=== PATIENT | male | born 1945 | race Caucasian/White ===

== ENCOUNTER 2019-07-06 15:01 | Emergency (ER) | payer OTHER, MEDICARE | END 2019-07-06 16:07 | disposition home or self-care (01) | LOC: EDH 15:01 | DX: S93.492A Sprain of other ligament of left ankle, initial encounter (principal); E11.9 Type 2 diabetes mellitus without complications; I10 Essential (primary) hypertension; Z91.040 Latex allergy status; X58.XXXA Exposure to other specified factors, initial encounter; Y93.89 Activity, other specified; Y92.213 High school as the place of occurrence of the external cause; Y99.8 Other external cause status | CPT/HCPCS: 73610 ==

== ENCOUNTER 2024-04-30 11:54 | Emergency (ER) | payer MEDICARE ==
[~2024-04-30] VITALS: Ht 170.2 cm; Wt 77.1 kg
--- NOTE | 2024-04-30 12:03 | ERN ---
ED Note History of Present Illness Stated Complaint: RIGHT TESTICULAR PAIN Chief Complaint: Testicular Injury/Pain Time Seen by MD: 11:56 Dictation: PATIENT IS AN 79-YEAR-OLD MALE HERE WITH COMPLAINTS OF RIGHT TESTICULAR PAIN WITHOUT FEVER CHILLS NAUSEA VOMITING FOR TWO DAYS. HE DENIES ANY FLANK PAIN NO CHANGE IN URINATION. DENIES ANY HISTORY OF CA. DOES NOT HAVE A PRIMARY CARE DOCTOR SAYS HE HAS BEEN SCOPE AND IT OUT ON GOOGLE AND THEN DECIDED TO COME TO THE EMERGENCY ROOM TO HAVE IT EVALUATED. Allergies: Coded Allergies: No Known Drug Allergies (Unverified Allergy, Unknown, 04/30/24) Past Medical History Past Medical History: High Cholesterol, Hypertension Surgical History: Other Surgical History Other: SHOULDER SX, LIPOMAS RN Note Reviewed/Agreed w/PFSH: Yes Review of System Dictation CONSTITUTIONAL: NEGATIVE EXCEPT FOR HPI HEAD/FACE: NEGATIVE EXCEPT FOR HPI EENT: NEGATIVE EXCEPT FOR HPI RESPIRATORY: NEGATIVE EXCEPT FOR HPI GASTROINTESTINAL/ABDOMINAL: NEGATIVE EXCEPT FOR HPI GENITOURINARY: NEGATIVE EXCEPT FOR HPI RIGHT TESTICULAR PAIN TWO DAYS MUSCULOSKELETAL: NEGATIVE EXCEPT FOR HPI INTEGUMENTARY: NEGATIVE EXCEPT FOR HPI NEUROLOGICAL/PSYCH: NEGATIVE EXCEPT FOR HPI HEMATOLOGIC/LYMPHATIC: NEGATIVE EXCEPT FOR HPI ALL SYSTEMS NEGATIVE, EXCEPT NOTED ABOVE. 13 POINT REVIEW OF SYSTEMS ASSESSED AND ALL NEGATIVE EXCEPT FOR ABOVE. Initial Vital Sign VS Vital Signs Date Time Temp Pulse Resp B/P (MAP) Pulse Ox O2 Delivery O2 Flow Rate FiO2 04/30/24 11:55 97.5 56 16 158/71 100 Room Air* 0 21 Physical Exam Dictation VITAL SIGNS REVIEWED IN ROOM WITH THE EXAM GENERAL APPEARANCE: ALERT, ORIENTED X 3, MILD ACUTE DISTRESS, WELL DEVELOPED, NOURISHED. HEAD AND FACE: NON-TRAUMATIC. EYES: PERRL, PINK CONJUNCTIVAS, EYELID NO TRAUMA, ANTERIOR CHAMBER WITH ARCUS SENILIS. EARS: PINNAS INTACT AND NO SIGNS OF TRAUMA OR ERYTHEMA EAR CANALS CLEAR AND NO DISCHARGE TM NO ERYTHEMA NOSE: NO DISCHARGE, NO BLEEDING. OROPHARYNX: MOUTH NORMAL, TONGUE PINK, PHARYNX CLEAR,NO ERYTHEMA, TONSILS NO EXUDATES, NO ABSCESSES NOTED, MUCOUS MEMBRANE MOIST NECK: SUPPLE, NON-TENDER, NO THYROMEGALY, NO MASSES, NO JVD, NO BRUITS BREAST:DEFERRED CHEST:NO TENDERNESS, NO CREPITUS, NO PARADOXICAL MOVEMENT, NO RETRACTIONS LUNGS:CLEAR, WELL-VENTILATED, SYMMETRIC, NO RALES, NO WHEEZING, NO RHONCHI, NO STRIDOR, GOOD BREATH SOUNDS BILATERALLY HEART: REGULAR RATE, REGULAR RHYTHM, NO MURMUR, NO GALLOPS VASCULAR: NO PERIPHERAL EDEMA, ABDOMEN: SOFT, POSITIVE BOWEL SOUNDS, NONDISTENDED, NO GUARDING, NONTENDER, NO REBOUND, NO MASSES NO HEPATOMEGALY, NO SPLENOMEGALY, NO PEDRAZA'S SIGN, NO HERNIAS. RECTAL: DEFERRED GENITAL: BILATERAL TESTICLES ARE DESCENDED MILD RIGHT TESTICULAR SWELLING TENDERNESS POSITIVE CREMASTERIC REFLEX BILATERALLY NEUROLOGICAL: NORMAL SPEECH, MOTOR FUNCTION INTACT, SENSORY FUNCTION INTACT MUSCULOSKELETAL: NECK NONTENDER, FULL RANGE OF MOTION, BACK NONTENDER, FULL RANGE OF MOTION, EXTREMITIES: NONTENDER, FULL RANGE OF MOTION SKIN: COLOR PINK, DRY, NO TURGOR, NO RASH, NO LACERATIONS, NO ABRASIONS, NO CONTUSIONS. LYMPHATIC: DEFERRED Results (Laboratory/Radiology) Laboratory/Radiology Laboratory Tests Test 04/30/24 12:20 04/30/24 15:13 White Blood Count 8.2 K/uL (4.8-10.8) Red Blood Count 2.99 MIL/uL (4.50-6.20) L Hemoglobin 9.7 g/dL (14.0-18.0) L Hematocrit 28.4 % (42-54) L Mean Corpuscular Volume 95.0 fL (79-99) Mean Corpuscular Hemoglobin 32.4 pg (27.0-33.0) Mean Corpuscular Hemoglobin Concent 34.2 g/dL (32.0-36.0) Red Cell Distribution Width 13.8 % (11.0-15.5) Platelet Count 178 K/uL (130-400) Mean Platelet Volume 12.0 fL (7.5-10.5) H Immature Granulocyte % (Auto) 0.4 % (0-1) Neutrophils (%) (Auto) 61.9 % (40.0-77.0) Lymphocytes (%) (Auto) 27.9 % (21.0-51.0) Monocytes (%) (Auto) 7.4 % (3.0-13.0) Eosinophils (%) (Auto) 2.2 % (0.0-8.0) Basophils (%) (Auto) 0.2 % (0.0-5.0) Neutrophils # (Auto) 5.1 K/uL (1.8-7.7) Lymphocytes # (Auto) 2.3 K/uL (1.0-4.8) Monocytes # (Auto) 0.6 K/uL (0.1-1.0) Eosinophils # (Auto) 0.18 K/uL (0.00-0.70) Basophils # (Auto) 0.02 K/uL (0.00-0.20) Absolute Immature Granulocyte (auto 0.03 K/uL (0-1) Nucleated Red Blood Cells 0.0 % (0.0-0.19) Sodium Level 139 mmol/L (136-145) Potassium Level 4.7 mmol/L (3.5-5.1) Chloride Level 104 mmol/L (101-111) Carbon Dioxide Level 23 mmol/L (21-32) Blood Urea Nitrogen 65 mg/dL (7-18) H Creatinine 5.3 mg/dL (0.5-1.3) H Glomerular Filtration Rate Calc 10 mL/min (>90) Random Glucose 101 mg/dL (70-105) Total Calcium 9.0 mg/dL (8.5-10.1) Urine Color LIGHT-YELLOW (YELLOW) Urine Appearance CLEAR (CLEAR) Urine pH 6.5 (5.0-8.0) Urine Specific Harrison 1.008 (1.001-1.031) Urine Protein 100 mg/dL (NEGATIVE) H Urine Glucose (UA) 300 mg/dL (NEGATIVE) H Urine Ketones NEGATIVE mg/dL (NEGATIVE) Urine Occult Blood +- (TRACE) (NEGATIVE) H Urine Nitrate NEGATIVE (NEGATIVE) Urine Bilirubin NEGATIVE mg/dL (NEGATIVE) Urine Urobilinogen 0.2 mg/dL (0.2-1.0) Urine Leukocyte Esterase NEGATIVE Eyad/uL Urine RBC 0-1 /HPF (0-1) Urine WBC 0-1 /HPF (0-1) Urine Bacteria None /HPF (None Seen) Testicular ultrasound with color-flow Doppler Findings: The testes are of normal size and echogenicity. Vascular flow is preserved to both testes- there is no evidence of torsion. There is no evidence of inflammation. Bilateral hydroceles. Bilateral epididymal head cysts. Impression: Bilateral hydroceles. Bilateral epididymal head cysts. Labs Reviewed?: Yes ED Course ED Course Orders Procedure Category Date Status Time Us Scrotum & Contents US 04/30/24 Resulted 12:01 Cbc With Differential LAB 04/30/24 Complete 12: Urinalysis Profile LAB 04/30/24 Complete 12: Basic Metabolic Panel LAB 04/30/24 Complete 12: Ibuprofen 800 Mg Tab PHA 04/30/24 Complete (Motrin) 12:30 Current Medications Medications (Trade) Dose Ordered Sig/Yamil Route PRN Reason Start Time Stop Time Status Last Admin Dose Admin Ibuprofen (moTRIN) 800 mg ONCE ONCE PO 04/30/24 12:30 04/30/24 12:31 DC Vital Signs Date Time Temp Pulse Resp B/P (MAP) Pulse Ox O2 Delivery O2 Flow Rate FiO2 04/30/24 14:50 98.2 85 16 187/76 98 Room Air* 0 21 04/30/24 11:56 97.5 56 16 158/71 100 Room Air 0 04/30/24 11:55 97.5 56 16 158/71 100 Room Air* 0 21 1535 PATIENT DISCHARGED HOME WITH EPIDIDYMAL CYST WE WILL BE PUT ON ANTIBIOTICS AND REFERRED TO HER PRIMARY CARE DOCTOR OR UROLOGY Medical Decision Making MDM MEDICAL DISCHARGE MAKING BASED ON ULTRASOUND AND LABS PATIENT HAS BILATERAL EPIDIDYMAL CYST WITHOUT INFLAMMATION STAGE 4 KIDNEY DISEASE AND HE SEES AN NEPHROLOGISTS IN [facility]. DISCHARGED HOME TO FOLLOW UP IN THE NEXT FEW DAYS DX & DISP Disposition: Discharge Departure Impression: Primary Impression: Cyst of epididymis determined by ultrasound Additional Impression: Stage 4 chronic kidney disease Condition: Stable Scripts Acetaminophen with Codeine (Acetaminophen-Cod #3 Tablet) 300 Mg-30 Mg Tablet 1 TAB PO Q4H PRN for MODERATE TO SEVERE PAIN, #12 TAB 0 Refills Prov: GUTIERREZ WHEAT NP 04/30/24 Levofloxacin (Levofloxacin) 500 Mg Tablet 1 TAB PO DAILY for 7 Days, #7 TAB 0 Refills Prov: GUTIERREZ WHEAT NP 04/30/24 Additional Instructions: Follow-up with primary care provider in 1 to 2 days. Take medications as directed here in the emergency room. Okay to continue home medications unless otherwise discussed during your visit in the emergency room today. Return to your nearest emergency room if symptoms worsen or if there is no improvement. Call 911 if you need immediate assistance. Take Tylenol or Motrin [id number] as needed and if no contraindications are present. Increase oral hydration. A wound culture or urine culture was ordered here in the emergency room department please follow-up with primary care provider and advise them to get repeat ports from our facility. If you had any Sukh wrap/splints that were applied here, please do not remove them until you see your primary care or specialty. Warm compresses to pain three to 4 times a day. Call urologist for appointment in next 1-2 days. Referrals: SELF,REFERRAL (PCP) RADHA AVALOS MD Time of Disposition: 15:39 I have reviewed the case, and I agree with, Diagnosis and Plan GUTIERREZ WHEAT NP Apr 30, 2024 12:03
[2024-04-30 12:26] LABS: BASOPHILS # (AUTO) 0.02 K/uL (0.00-0.20); BASOPHILS % (AUTO) 0.2 % (0.0-5.0); EOSINOPHILS # (AUTO) 0.18 K/uL (0.00-0.70); EOSINOPHILS % (AUTO) 2.2 % (0.0-8.0); HEMATOCRIT 28.4 % (42-54); IMMATURE GRANULOCYTE ABSOLUTE 0.03 K/uL (0-1); LYMPHOCYTES # (AUTO) 2.3 K/uL (1.0-4.8); LYMPHOCYTES % (AUTO) 27.9 % (21.0-51.0); MEAN CORPUSCULAR HEMOGLOBIN 32.4 pg (27.0-33.0); MEAN CORPUSCULAR HGB CONC 34.2 g/dL (32.0-36.0); MONOCYTES # (AUTO) 0.6 K/uL (0.1-1.0); MONOCYTES % (AUTO) 7.4 % (3.0-13.0); NEUTROPHILS # (AUTO) 5.1 K/uL (1.8-7.7); NEUTROPHILS % (AUTO) 61.9 % (40.0-77.0); PLATELET COUNT (AUTO) 178 K/uL (130-400); RED BLOOD CELL COUNT(AUTO) 2.99 MIL/uL (4.50-6.20); RED CELL DISTRIBUTION WIDTH 13.8 % (11.0-15.5); WHITE BLOOD COUNT (AUTO) 8.2 K/uL (4.8-10.8)
[2024-04-30] MEDS: ibuPROFEN 800 MG TAB PO ONE (12:30)
[2024-04-30 12:33] LABS: CREATININE 5.3 mg/dL (0.5-1.3); POTASSIUM 4.7 mmol/L (3.5-5.1)
--- NOTE | 2024-04-30 13:06 | HMCIMG ---
Testicular ultrasound with color-flow Doppler Findings: The testes are of normal size and echogenicity. Vascular flow is preserved to both testes- there is no evidence of torsion. There is no evidence of inflammation. Bilateral hydroceles. Bilateral epididymal head cysts. Impression: Bilateral hydroceles. Bilateral epididymal head cysts.
[2024-04-30 15:28] LABS: ADD UA MICROSCOPIC YES; APPEARANCE,URINE CLEAR (CLEAR); BILIRUBIN,URINE NEGATIVE (NEGATIVE); COLOR,URINE LIGHT-YELLOW (YELLOW); GLUCOSE, URINE (UA) 300 mg/dL (NEGATIVE); KETONES,URINE NEGATIVE (NEGATIVE); LEUKOCYTE ESTERASE ,URINE NEGATIVE Leu/uL (NEGATIVE); NITRATE,URINE NEGATIVE (NEGATIVE); PH,URINE 6.5 (5.0-8.0); PROTEIN,URINE 100 mg/dL (NEGATIVE); UROBILINOGEN,URINE 0.2 mg/dL (0.2-1.0)
[2024-04-30 15:29] LABS: MUCUS,URINE RARE LPF (None Seen); RBC,URINE 0-1 /HPF (0-1); WBC,URINE 0-1 /HPF (0-1)
[2024-04-30] MEDS ORDERED: LEVO-70 PO (15:42)
[2024-04-30] MEDS ORDERED: ACET-2079 PO (15:42)
[2024-04-30 15:59] VITALS: BP 160/62; PULSE 82; RESP 16; TEMP 98.3; O2SAT 98
[2024-04-30] MEDS: acetaMINOPHEN WITH coDEINE 1 TAB TAB PO ONE (16:03)
== END 2024-04-30 16:11 | disposition home or self-care (01) ==
LOC: EDH 11:54
DX: N50.3 Cyst of epididymis (principal); I12.9 Hypertensive chronic kidney disease with stage 1 through stage 4 chronic kidney disease, or unspecified chronic kidney disease; N18.4 Chronic kidney disease, stage 4 (severe); E78.00 Pure hypercholesterolemia, unspecified
CPT/HCPCS: 36415; 76870; 80048; 81001; 85025; 99284